=== PATIENT | male | born 1945 | race Caucasian/White ===

== ENCOUNTER 2018-12-20 16:22 | Emergency (ER) | payer OTHER, BC, MEDICARE ==
[~2018-12-20] VITALS: Ht 182.9 cm; Wt 91.6 kg
[~2018-12-20 16:22] MED LIST: CYCL10 PO; HYDACE5 PO; IBUP400 PO; NAPR550 PO
[2018-12-20 17:22] LABS: BASOPHILS ABSOLUTE AUTO 0.04 K/mm3 (0.00-0.23); BASOPHILS PERCENT AUTO 1 % (0-2); EOSINOPHILS ABSOLUTE AUTO 0.08 K/mm3 (0.00-0.68); EOSINOPHILS PERCENT AUTO 1 % (0-6); Hematocrit 46.5 % (37.0-53.0); Hemoglobin 15.5 g/dL (13.5-17.5); IMMATURE GRAN ABSOLUTE AUTO 0.06 K/mm3 (0.00-0.10); IMMATURE GRAN PERCENT AUTO 1 % (0-1); LYMPHOCYTES ABSOLUTE AUTO 1.81 K/mm3 (0.84-5.20); LYMPHOCYTES PERCENT AUTO 22 % (21-46); MONOCYTES ABSOLUTE AUTO 0.74 K/mm3 (0.16-1.47); MONOCYTES PERCENT AUTO 9 % (4-13); Mean Corpuscular HGB 33.5 pg (26.0-34.0); Mean Corpuscular HGB Conc 33.3 g/dL (31.5-36.5); Mean Corpuscular Volume 101 fL (80-100); Mean Platelet Volume 10.8 fL (9.1-12.4); NEUTROPHILS ABSOLUTE AUTO 5.42 K/mm3 (1.96-9.15); NEUTROPHILS PERCENT AUTO 67 % (41-73); Platelet Count 176 K/mm3 (150-400); RDW Coefficient Variation 11.7 % (11.7-14.2); RDW Standard Deviation 43.7 fL (35.1-46.3); Red Blood Cell Count 4.62 M/mm3 (4.30-5.90); White Blood Cell Count 8.15 K/mm3 (4.00-11.30)
[2018-12-20] MEDS ORDERED: FINA5 PO (17:35)
[2018-12-20] MEDS ORDERED: Terazosin HCl10 MG (17:35)
[2018-12-20 17:47] LABS: Alanine Aminotransfer (ALT/SGP 26 U/L (12-78); Albumin/Globulin Ratio 1.1 (0.8-1.8); Alk Phos 96 U/L (50-136); Anion Gap 6 mmol/L (6-16); Aspartate Aminotrans (AST/SGOT 21 U/L (12-37); Bilirubin, Total 0.5 mg/dL (0.1-1.0); Blood Urea Nitrogen 16 mg/dL (8-24); Bun/Creatinine Ratio 17.7 (12.0-20.0); CO2, Blood 28 mmol/L (21-32); Calcium, Blood 9.1 mg/dL (8.5-10.1); Chloride, Blood 104 mmol/L (98-108); Ethanol (Alcohol), Blood, Med <3 mg/dL; Globulin, Blood 3.6 g/dL (2.2-4.0); Glomerular Filtration Rate >60 (60-); Glucose, Blood 96 mg/dL (70-99); Potassium, Blood 3.5 mmol/L (3.5-5.5); Sodium, Blood 138 mmol/L (136-145); Total Protein, Blood 7.6 g/dL (6.4-8.2); Troponin I <0.015 ng/mL (0.000-0.040)
== END 2018-12-20 20:50 | disposition home or self-care (01) ==
LOC: ER 16:22
PROVIDERS: Emergency Medicine
DX: R55 Syncope and collapse (principal); S20.319A Abrasion of unspecified front wall of thorax, initial encounter; S40.812A Abrasion of left upper arm, initial encounter; S40.811A Abrasion of right upper arm, initial encounter; V89.2XXA Person injured in unspecified motor-vehicle accident, traffic, initial encounter
CPT/HCPCS: 36415; 70450; 71046; 80053; 83880; 84484; 85025; 90714; 93005; 93010; 99285-25; G0480

== ENCOUNTER 2020-09-23 12:13 | Emergency (ER) | payer OTHER, BC ==
[~2020-09-23] VITALS: Ht 182.9 cm; Wt 90.7 kg
[~2020-09-23 12:13] MED LIST changes: +FINA5 PO; +Terazosin HCl10 MG
[2020-09-23 14:12] LABS: Influenza A, PCR Negative (NEGATIVE); Influenza B, PCR Negative (NEGATIVE); Resp Syncytial Virus, PCR Negative (NEGATIVE); SARS-Cov-2 (COVID-19) PCR, MMC Negative (NEGATIVE)
[2020-09-23 14:28] LABS: International Normalized Ratio 0.96; Prothrombin Time Results 10.3 Sec (9.7-11.5)
== END 2020-09-23 15:20 | disposition home or self-care (01) ==
LOC: ER 12:13
PROVIDERS: Emergency Medicine
DX: G93.89 Other specified disorders of brain (principal); R53.1 Weakness; R60.9 Edema, unspecified; I10 Essential (primary) hypertension; F17.210 Nicotine dependence, cigarettes, uncomplicated; Z20.828 Contact with and (suspected) exposure to other viral communicable diseases; Z79.899 Other long term (current) drug therapy
CPT/HCPCS: 0241U; 70470; 85610; 85730; 96365-59; 96366; 99285-25; J7050; Q9967

== ENCOUNTER 2022-09-22 01:11 | Day surgery (SDC) | payer OTHER, BC | END 2022-09-22 09:39 | disposition home or self-care (01) | LOC: ATC 01:11 | DX: E27.49 Other adrenocortical insufficiency (principal); E87.1 Hypo-osmolality and hyponatremia | CPT/HCPCS: 80400; 82533; J0834 ==